=== PATIENT | male | born 1995 | race Hispanic/Latino ===

== ENCOUNTER 2023-06-01 00:23 | Emergency (ER) | payer OTHER ==
[~2023-06-01] VITALS: Ht 170.2 cm; Wt 89.8 kg
[2023-06-01 00:25] VITALS: BP 135/63; PULSE 115; RESP 14; O2SAT 96
[2023-06-01] MEDS ORDERED: FAMOTIDINE 20MG VIAL IV ONE ×2 (00:34→01:00)
[2023-06-01] MEDS ORDERED: 0.9%NACL 1000ML 1,000 ML IV SCH (01:00)
== END 2023-06-01 02:17 | disposition home or self-care (01) ==
LOC: EDH 00:23
DX: S90.02XA Contusion of left ankle, initial encounter (principal); S80.02XA Contusion of left knee, initial encounter; S60.511A Abrasion of right hand, initial encounter; Z88.0 Allergy status to penicillin; X58.XXXA Exposure to other specified factors, initial encounter; Y93.89 Activity, other specified; Y92.89 Other specified places as the place of occurrence of the external cause; Y99.8 Other external cause status
CPT/HCPCS: 99285; 70450; 96374; 71045; 96361; 73600; 73562; 73130; 72170; 72125; 70486; J3490; J7030